=== PATIENT | male | born 1995 | race Caucasian/White ===

== ENCOUNTER → 2022-04-07 | Outpatient (CLI) | payer SELFPAY ==
[2022-04-07 13:10] LABS: SEMEN VOLUME 0.5 ML (1.5-5.0)
== END ==
LOC: LAB 12:08
PROVIDERS: ATTEND Obstetrics & Gynecology
DX: N46.9 Male infertility, unspecified (principal)
CPT/HCPCS: 89320

== ENCOUNTER → 2022-05-07 | Outpatient (CLI) | payer OTHER ==
--- NOTE | 2022-05-07 13:19 | Diagnostic Imaging Report ---
PROCEDURE: US Scrotum. TECHNIQUE: Multiple real-time grayscale images were obtained over the scrotum in various projections bilaterally. INDICATION: History of left-sided varicocele. COMPARISON: None FINDINGS: Right testicle measures 5.1 x 2.2 x 2.5 cm and the left measures 4.4 x 2 x 2.9 cm. Testicles show normal symmetric echogenicity bilaterally. No focal mass is seen. Color flow images show normal vascularity. Epididymides have a normal sonographic appearance bilaterally as well. There is small left hydrocele. Bilateral varicoceles are also present. IMPRESSION: 1. Bilateral varicoceles. 2. Small left hydrocele. 3. Otherwise, normal sonographic appearance of the testicles. Dictated by: Dictated on workstation # [id number]
== END ==
LOC: RAD 12:00
PROVIDERS: ATTEND Urology
DX: I86.1 Scrotal varices (principal)
CPT/HCPCS: 76870

== ENCOUNTER → 2022-10-24 | Outpatient (CLI) | payer SELFPAY ==
[2022-10-24 13:22] LABS: SEMEN VOLUME 1.4 ML (1.5-5.0)
== END ==
LOC: LAB 12:09
PROVIDERS: ATTEND Obstetrics & Gynecology
DX: N46.9 Male infertility, unspecified (principal)
CPT/HCPCS: 89320